=== PATIENT | female | born 1985 | race African-American/Black ===

== ENCOUNTER 2023-06-12 20:52 | Emergency (ER) | payer OTHER, SELFPAY ==
--- NOTE | 2023-06-12 21:07 | MHC.EDTECH ---
Patient has 3 bags of clothes, jacket, shoes, socks pants, sweatshirt. all in [facility]. SG
--- NOTE | 2023-06-12 21:14 | ED.OVERDOSE ---
HPI - Overdose General Stated Complaint: overdose Time Seen by Provider: 06/12/23 21:14 History of Present Illness HPI Narrative: Patient is 37 years old with a history of polysubstance abuse. Found eyes rolling not very responsive. Patient was given Narcan. Woke up immediately. Became extremely agitated. Sent to the emergency department for further evaluation. Patient admits to using possible use heroin. Used cocaine. Patient denies any suicidal ideation use drugs for recreational reasons. Patient was found with needle in her arm. Patient did not want any detox. Related Data Allergies Allergy/AdvReac Type Severity Reaction Status Date / Time No Known Allergies Allergy Unverified 02/25/20 19:32 [No Known Allergies*] Review of Systems Review of Systems: Positive cocaine and heroin use Yes all other systems are reviewed and are negative [facility] Past Medical History Attestation statement: The following information was validated with the patient. Onset Date is defined in the Problem List Problems that require an onset date and time if occurred within 24 hrs of arrival to the ED Aortic Dissection and Rupture; Neurologic impairment; Cardiopulmonary Arrest; Endotracheal Intubation; Insertion or Replacement of Mechanical Circulatory Assist Device Physical Exam Vital Signs: Vital Signs: Appearance: Alert. Oriented X3. No acute distress. Eyes: Pupils equal, round and reactive to light. ENT: Pharynx normal. Neck: Normal inspection. Neck supple. No lymph nodes noted. No crepitus CVS: Normal heart rate and rhythm. Pulses normal. Normal S1 and S2 Respiratory: No respiratory distress. Breath sounds normal. No Wheezing. No rales Abdomen: Soft and nontender. No rigidity. No distention. good BS x4 Skin: Skin warm and dry. Normal skin color. Normal skin turgor. Extremities: No lower extremity edema. Neurovascular intact to all extremities. No Lacerations. No Rash Neuro: Oriented X 3. No motor deficit. No sensory deficit. Moving all extermities. No slurred speech Medical Decision Making Medical Decision Making MDM Narrative: Patient now awake alert oriented extremely agitated. Explained to patient the need to be monitor in the emergency department for the next 2 hours just in case patient has rebound from her heroin overdose. Patient just went to the bathroom. Will monitor carefully. Will discharge patient after 2 hours. Explained to patient the need to stop using heroin. Differential Diagnosis Narcotic overdose Admission/Observation Consideration of admission/observation: Escalation of care including admission/observation considered Patient breathing awake alert does not need to be admitted at this point Lab Data MDM Lab Attestation statement: I reviewed the patient's lab results. Chronic Conditions Polysubstance abuse Social Determinants Patient?s care significantly limited by Social Determinants of Health including: Alcoholism and drug addiction in family Discharge Plan Discharge Clinical Impression: Cocaine abuse, Heroin abuse Patient Disposition: Still a Patient Instructions: Cocaine Abuse (ED), Narcotic Use Disorder (ED) Additional Instructions: Please stop using recreational drugs. Please go to detox. Referrals: [facility] [Provider Group] (Please go to detox. Please stop using heroin.)
[2023-06-12 21:40] VITALS: BP 116/94; BP 173/83; PULSE 103; PULSE 87; RESP 16; TEMP 37.1; O2SAT 98; BMI 29.7
--- NOTE | 2023-06-12 21:55 | PC.NURSE ---
PT reports she has been diagnosed with head lice and has not been treated.
--- NOTE | 2023-06-12 22:54 | PC.NURSE ---
Late entry: This RN brought patient to bathroom to give urine sample and change. Pt admitted to this RN that she has body lice and had unprotected sex a month ago and subsequently has many sores around her body. Pt reports that she has been extremely itchy recently and thinks it is due to the lice. Pt also admits to this RN that she does coke daily . Pt was able to give urine sample which showed positive for multiple things. Pt began to get sleepy, eyes rolling back in head, snoring respirations. MD Lu at bedside verbal order for narcan. Pt given narcan, immediately woke up and became agressive with this RN and security. Pt yelling get me the fuck outta here, you told me I could leave . This RN educated patient that she could not leave and that she has to be monitored. Pt agreeable at this time. After a few minutes, patient began vomiting. Pt was changed by this RN and ISIAH Simmons. Pt unable to stand up straight. Pt was placed on trolley cleaner and CO2 monitor. Pt is now sleeping, VSS, respirations even and unlabored
[2023-06-13 02:28] VITALS: BP 125/50; PULSE 69; RESP 16; O2SAT 95
[2023-06-13 04:07] VITALS: BP 102/62; PULSE 66; RESP 16; O2SAT 97
[2023-06-13 06:14] VITALS: BP 99/60; PULSE 56; RESP 16; O2SAT 99
[2023-06-13 08:08] VITALS: BP 115/54; PULSE 75; RESP 19; TEMP 36.8; O2SAT 99
== END 2023-06-13 08:33 | disposition home or self-care (01) ==
PROVIDERS: Emergency Provider Emergency Medicine Emergency Medical Services; PCP Internal Medicine
DX: T40.1X4A Poisoning by heroin, undetermined, initial encounter (principal); R40.4 Transient alteration of awareness; Y92.9 Unspecified place or not applicable; F19.10 Other psychoactive substance abuse, uncomplicated; F14.10 Cocaine abuse, uncomplicated; F11.10 Opioid abuse, uncomplicated
CPT/HCPCS: 80307; 81001; 99284